=== PATIENT | male | born 1965 | race Two or more races ===

== ENCOUNTER 2017-01-17 07:07 | Day surgery (SDC) | payer OTHER ==
[2017-01-15 22:50] LABS: BASOPHILS 0.3 %; BASOPHILS ABSOLUTE 0.03 10/3/uL (0.0-0.16); EOSINOPHILS 5.2 %; EOSINOPHILS ABSOLUTE 0.48 10/3/uL (0.0-0.53); HEMATOCRIT 43.4 % (40.0-51.0); HEMOGLOBIN 14.6 g/dL (13.6-17.8); IMMATURE GRANULOCYTES 0.5 %; IMMATURE GRANULOCYTES ABSOLUTE 0.05 10/3/uL (0.0-0.11); LYMPHOCYTES 36.3 %; LYMPHOCYTES ABSOLUTE 3.35 10/3/uL (0.67-4.30); MEAN CORPUS HGB CONC 33.6 g/dL (32.0-36.0); MEAN CORPUSCULAR VOLUME 89.3 fL (80-100); MEAN PLATELET VOLUME 10.1 fL (9.2-13.0); MONOCYTES 6.9 %; MONOCYTES ABSOLUTE 0.64 10/3/uL (0.21-1.20); NEUTROPHILS 50.8 %; NEUTROPHILS ABSOLUTE 4.69 10/3/uL (2.02-8.40); PLATELET COUNT 338 10/3/uL (150-400); RBC DISTRIBUTION WIDTH 13.4 % (12.0-16.0); RED CELL COUNT 4.86 10/6/uL (4.7-6.1); WHITE BLOOD CELLS 9.2 10/3/uL (4.5-10.5)
[2017-01-15 22:52] LABS: MANUAL DIFF NO %
[2017-01-15 23:05] LABS: BUN (BLOOD UREA NITROGEN) 10 MG/DL (6-23); CALCIUM, SERUM 9.2 MG/DL (8.5-10.4); CHLORIDE, SERUM 110 MMOL/L (96-112); CO2 (CARBON DIOXIDE) 27 MMOL/L (24-34); CREATININE 0.94 MG/DL (0.70-1.30); GFR AFRICAN AMERICAN 108 ML/MIN (>=60); GFR NON AFRICAN AMERICAN 93 ML/MIN (>=60); GLUCOSE, SERUM 87 MG/DL (60-99); POTASSIUM, SERUM 5.4 MMOL/L (3.5-5.3); SODIUM, SERUM 143 MMOL/L (135-148)
[~2017-01-17] VITALS: Ht 165.1 cm; Wt 71.7 kg
--- NOTE | ~2017-01-17 | OP ---
Record Of Operation [facility] [address] [place]. [address] NAME: JUJU PARSONS : 63 STATUS : REG [facility] PAT#: [id number] AGE: 51 ADM/REG DATE : 01/17/17 MR#: [id number] REPORT SERV DATE: 01/17/17 DICTATED BY: ALEXSANDER CHEN DATE: 01/17/17 REPORT STATUS : Draft TRANSCRIBED BY: MODL DATE: 01/17/17 DATE OF PROCEDURE: 01/17/2017 PREOPERATIVE DIAGNOSES: 1. Bilateral lower extremity claudication with peripheral arterial disease. 2. Concern for renal artery stenosis. POSTOPERATIVE DIAGNOSES: 1. Bilateral lower extremity claudication with peripheral arterial disease. 2. Concern for renal artery stenosis. PROCEDURES: 1. Aortogram with bilateral lower extremity runoff. 2. Angioplasty of right superficial femoral artery with drug-coated balloon. 3. Angioplasty of right external iliac artery. 4. Angioplasty of left external iliac artery. 5. Angioplasty with stent placement in left common iliac artery. ANESTHESIA: Local with sedation. COMPLICATIONS: None. BLOOD LOSS: Minimal. HISTORY: The patient is a 51-year-old male with a history of bilateral lower extremity claudication and recent abnormal ultrasound, concerning for renal artery stenosis. It was felt he would benefit from arteriogram with possible intervention. This was discussed with the patient in detail. He expressed understanding and desired to proceed. DESCRIPTION OF PROCEDURE: The patient was taken to the operating room and placed in the supine position. He was given IV sedation without complication. Both groins were prepped and draped in a sterile fashion. Ultrasound was used to identify the common femoral on the left. 1% lidocaine was infiltrated in the skin and subcutaneous tissues. Under ultrasound guidance, an 18-gauge needle was placed in the common femoral artery. Wire was passed into the aorta which was confirmed with fluoroscopy. The needle was removed. A 5-Welsh sheath placed. UF catheter was passed with the wire into the aorta. Aortogram shows patent aorta, patent single renal arteries bilaterally. There was no evidence of stenosis. Flow was seen in the SMA and celiac branches. The aorta is patent. The common iliac artery is patent on the right. There appears to be a left common iliac occlusion. The catheter was pulled down to the distal aorta. Arteriogram shows occlusion of the left common iliac artery. There appears to be reconstitution of the left external iliac artery. There was some filling of the internal iliac artery on the left. On the right, the common iliac artery was patent. There is a high-grade stenosis in the external iliac artery. The internal iliac artery appears patent. Common femoral artery is patent on the right. It is clearly visualized on the left. Wire was placed in the catheter. Catheter was placed into the external iliac artery on the right. Arteriogram shows a patent common femoral, profunda femoral, Record Of Operation [place] [id number] [facility] [place]. [address] NAME: JUJU PARSONS : 63 STATUS : REG [facility] PAT#: [id number] AGE: 51 ADM/REG DATE : 01/17/17 MR#: [id number] REPORT SERV DATE: 01/17/17 DICTATED BY: ALEXSANDER CHEN DATE: 01/17/17 REPORT STATUS : Draft TRANSCRIBED BY: MICHAEL DATE: 01/17/17 superficial femoral artery proximally. There was some mild stenosis in the mid SFA with a near occlusive lesion in the distal SFA. Beyond this, there was a large patent popliteal artery above and below the knee. Runoff is via the posterior tibial and peroneal arteries with a patent but diseased anterior tibial artery which was poorly visualized in the mid and distal lower leg. The patient was given 4000 units of heparin intravenously. Wire was guided in the superficial femoral artery. Sheath was exchanged for a 6 x 45 sheath. The SFA disease was crossed with a Trailblazer and wire and select arteriogram shows a patent popliteal artery beyond. A 5 mm x 200 mm balloon was used to angioplasty the SFA popliteal on the right as well as the external iliac artery. Post arteriogram shows improved flow in the external iliac artery with minimal residual stenosis. The superficial femoral artery has significant residual stenosis. A 6 x 200 balloon was used to angioplasty both areas once again. This was also used to angioplasty the common iliac artery on the left. Post arteriogram shows a patent common iliac artery on the left with dissection and residual stenosis. There was patent common iliac artery and external iliac artery on the right. The superficial femoral artery was patent on the right with mild residual dissection. A 6 x 150 drug-coated balloon was used to angioplasty the superficial femoral artery on the right at the site of the residual mild dissection and post arteriogram shows it to be widely patent now and no residual stenosis. The same balloon was used to angioplasty the external iliac artery on the right and post arteriogram shows it to be widely patent with no residual stenosis. Attention was turned back to the left iliac system. There was a stenosis noted in the distal external iliac artery as well as dissection and stenosis in the common iliac artery. The common iliac artery was treated with a 9 x 40 self-expanding stent and then the iliac artery common and external angioplastied with 8 x 40 balloon. Post arteriogram now shows a widely patent common iliac artery, patent common iliac artery stent, and patent external iliac artery with no stenosis. There was no dissection and no extravasation. Arteriogram of the remaining left leg shows a widely patent common femoral and extensive profunda femoral artery. The superficial femoral artery was occluded and reconstitutes via collaterals in the distal thigh. The popliteal artery was patent above and below the knee. The runoff is similar to the right leg with a widely patent posterior tibial and peroneal arteries and diseased anterior tibial artery with poor flow. This was felt to be an excellent result. The sheath was removed. Access closed with StarClose device without difficulty. The patient tolerated the procedure well and was taken to the recovery room in stable condition. KATIE/MICHAEL Alexsander Chen M.D. / [id number] CC: FLOR MERA
[~2017-01-17 07:07] MED LIST: ADVIL PO; BC ARTHRITIS P1 EACH PO; BUSPAR10 PO; BYSTOLIC2.5 MG PO; MEVACOR PO; NORV5 PO; PRIN20 PO; PROZAC PO
[2017-01-17] MEDS ORDERED: PLAVIX PO (14:22)
[2017-01-21] MEDS ORDERED: BC ARTHRITIS P1 EACH PO (12:28)
[2017-01-21] MEDS ORDERED: ACET500CAP PO (12:28)
[2017-01-21] MEDS ORDERED: BEN25 PO (12:29)
[2017-01-23] MEDS ORDERED: PERCOCET 10/3251 TAB PO (09:18)
== END 2017-01-17 15:30 | disposition home or self-care (01) ==
LOC: SDC 07:07 → SSU1 11:33 → SDC 15:30
PROVIDERS: Surgery
PROC: 047D3DZ Dilation of Left Common Iliac Artery with Intraluminal Device, Percutaneous Approach (ICD-10-PCS; principal; 2017-01-17 08:15)
PROC: 047J3ZZ Dilation of Left External Iliac Artery, Percutaneous Approach (ICD-10-PCS; 2017-01-17 08:15)
PROC: 047H3ZZ Dilation of Right External Iliac Artery, Percutaneous Approach (ICD-10-PCS; 2017-01-17 08:15)
PROC: 047K3Z1 Dilation of Right Femoral Artery using Drug-Coated Balloon, Percutaneous Approach (ICD-10-PCS; 2017-01-17 08:15)
DX: I70.211 Atherosclerosis of native arteries of extremities with intermittent claudication, right leg (principal); I70.8 Atherosclerosis of other arteries; F43.10 Post-traumatic stress disorder, unspecified; I10 Essential (primary) hypertension; F17.200 Nicotine dependence, unspecified, uncomplicated; Z86.73 Personal history of transient ischemic attack (TIA), and cerebral infarction without residual deficits; Z79.899 Other long term (current) drug therapy; Z88.1 Allergy status to other antibiotic agents
CPT/HCPCS: 37220; 37221; 37222; 37224; 75625; 75716; 75774; 80048; 85025; 93005; A9270-GY; C1725; C1769; C1876; C1887; C1894; J0690; J2250; J2270; J2405; J3010; Q9967